=== PATIENT | male | born 1955 | race Caucasian/White ===

== ENCOUNTER 2017-10-06 11:09 | Inpatient (IN) | payer MEDICAID ==
[2017-10-06] MEDS ORDERED: DILTIAZEM 25 MG/5 ML VIAL IVP ONE (11:27)
[2017-10-06] MEDS ORDERED: NS 1,000 ML IV ONE (11:27)
--- NOTE | 2017-10-06 11:27 | CPEKG ---
Heart Rate: 167 RR Interval: 359 QRSD Interval: 82 QT Interval: 288 QTC Interval: 481 QRS [place]: 8 T Wave [place]: 267 EKG Severity - ABNORMAL ECG - EKG Impression: ATRIAL FIBRILLATION WITH RAPID V-RATE EKG Impression: REPOLARIZATION ABNORMALITY, PROB RATE RELATED Electronically Signed By: Trevor Baker 06-Oct-2017 11:31:49
--- NOTE | 2017-10-06 11:31 | EDPHY ---
H & P Stated Complaint: went to urgent care for abd pain . dx with afib Time Seen by Provider: 10/06/17 11:22 HPI/ROS: CHIEF COMPLAINT: Lower abdominal pain, AFib HISTORY OF PRESENT ILLNESS: The patient is a 62-year-old former alcoholic who states he quit drinking about a week ago who comes to the emergency department for lower abdominal pain and atrial fibrillation. He presented this morning to the Urgent Care complaining of suprapubic pain that has been present for about 4 days. He noticed some blood in his urine a few days ago but has not since. While he was being seen at the urgent care and a negative urinalysis but an EKG there revealed atrial fibrillation. The patient denies ever having atrial fibrillation before. He denies chest pain, shortness of breath or palpitations. No lightheadedness. No recent fevers or infections. No vomiting or diarrhea. REVIEW OF SYSTEMS: Constitutional: denies: chills, fever, recent illness, recent injury EENTM: denies: blurred vision, double vision, nose congestion Respiratory: denies: cough, shortness of breath Cardiac: See HPI denies: chest pain, irregular heart rate, lightheadedness, palpitations Gastrointestinal/Abdominal: See HPI Genitourinary: denies: dysuria, frequency, hematuria, pain Musculoskeletal: denies: joint pain, muscle pain Skin: denies: lesions, rash, jaundice, bruising Neurological: denies: headache, numbness, paresthesia, tingling, dizziness, weakness Hematologic/Lymphatic: denies: blood clots, easy bleeding, easy bruising Immunologic/allergic: denies: HIV/AIDS, transplant EXAM: GENERAL: Well-appearing, well-nourished and in no acute distress. HEAD: Atraumatic, normocephalic. EYES: Pupils equal round and reactive to light, extraocular movements intact, sclera anicteric, conjunctiva are normal. ENT: TMs normal, nares patent, oropharynx clear without exudates. Moist mucous membranes. NECK: Normal range of motion, supple without lymphadenopathy or JVD. LUNGS: Breath sounds clear to auscultation bilaterally and equal. No wheezes rales or rhonchi. HEART: Tachycardic, irregular rhythm without murmurs, rubs or gallops. ABDOMEN: Slightly distended, Soft, nontender, normoactive bowel sounds. No guarding, no rebound. No masses appreciated. BACK: No CVA tenderness, no spinal tenderness, step-offs or deformities EXTREMITIES: Normal range of motion, no pitting or edema. No clubbing or cyanosis. NEUROLOGICAL: Cranial nerves II through XII grossly intact. Normal speech, normal gait. 5/5 strength, normal movement in all extremities, normal sensation PSYCH: Normal mood, normal affect. SKIN: Warm, dry, normal turgor, no visible rashes or lesions. Source: Patient Exam Limitations: No limitations - Personal History Current Tetanus/Diphtheria Vaccine: Unsure Current Tetanus Diphtheria and Acellular Pertussis (TDAP): Unsure - Medical/Surgical History Hx Asthma: No Hx Chronic Respiratory Disease: No Hx Diabetes: No Hx Cardiac Disease: Yes Hx Renal Disease: No Hx Cirrhosis: No Hx Alcoholism: No Hx HIV/AIDS: No Hx Splenectomy or Spleen Trauma: No Other PMH: HTN (currently not treated with medications), gout, alcoholism - Family History Significant Family History: No pertinent family hx - Social History Smoking Status: Never smoked Alcohol Use: Heavy Drug Use: None Constitutional: Initial Vital Signs Temperature (C) 36.9 C 10/06/17 11:11 Heart Rate 126 H 10/06/17 11:11 Respiratory Rate 18 10/06/17 11:11 Blood Pressure 126/83 H 10/06/17 11:11 O2 Sat (%) 96 10/06/17 11:11 O2 Delivery Mode Room Air Allergies/Adverse Reactions: No Known Allergies Allergy (Verified 10/06/17 11:15) Home Medications: Medication Instructions Recorded Allopurinol [Allopurinol 100 MG 100 mg PO DAILY PRN 10/06/17 (*)] Herbals/Supplements -Info Only 1 ea PO DAILY 10/06/17 Medical Decision Making - Diagnostics EKG Interpretation: An EKG obtained and was read and documented in trace view. Please see trace view for full reading and report. Atrial fibrillation, rate of 167 Imaging Results: Imaging Impressions Abdomen/Pelvis CTA 10/06/17 11:28 Impression: 1. There is a tiny right intrarenal abdominal aortic ulcerative plaque. There is no aneurysm, dissection, or significant stenosis of the abdominal aortoiliac vascular tree. There is no CT evidence of enterocolitis. 2. Coarsening of the hepatic attenuation, with no discrete mass observed on this arterial phase only study, with some undulation of the hepatic contour suggestive of cirrhosis. There are also some small distal paraesophageal venous varices suspected. 3. Mild splenomegaly. 4. Moderate-volume ascites. Findings were discussed with SHAQ DURANT MD at 13:01, on 10/06/2017. Abdomen Ultrasound 10/06/17 12:51 Impression: 1. Nonvisualization of the pancreas, abdominal aorta, and IVC secondary to overlying bowel gas. 2. Limited assessment of the main portal vein. Complete patency cannot be confirmed. 3. Hepatomegaly with coarsened hepatic echotexture, consistent with hepatocellular disease and/or steatosis. 4. Gallbladder distention with trace pericholecystic fluid and gallbladder sludge. There is no cholelithiasis. 5. There is some perihepatic ascites. Imaging: Discussed imaging studies w/ call or contact centre manager Radiologist ED Course/Re-evaluation: 1:20 a.m. I discussed the case with Dr. Jero Myrick who will admit to the medical service. The patient is receiving heparin and diltiazem drip. Will admit to the PCU. I also ordered a gallbladder/liver ultrasound based on his elevated enzymes. He has not had this worked up before but is likely from his alcoholism. Differential Diagnosis: Partial list of the Differential diagnosis considered include but were not limited to; ischemic bowel, arrhythmia, cirrhosis, biliary disease and although unlikely based on the history and physical exam, I also considered appendicitis, urinary tract infection. - Data Points Laboratory Results: Laboratory Results 10/06/17 11:30 10/06/17 11:30 10/06/17 10/06/17 10/06/17 11:30 11:30 11:30 WBC 12.10 10^3/uL H 10^3/uL (3.80-9.50) RBC 4.49 10^6/uL 10^6/uL (4.40-6.38) Hgb 15.8 g/dL g/dL (13.7-17.5) Hct 43.9 % % (40.0-51.0) MCV 97.8 fL fL (81.5-99.8) MCH 35.2 pg H pg (27.9-34.1) MCHC 36.0 g/dL g/dL (32.4-36.7) RDW 13.3 % % (11.5-15.2) Plt Count 152 10^3/uL 10^3/uL (150-400) MPV 10.7 fL fL (8.7-11.7) Neut % (Auto) 73.8 % % (39.3-74.2) Lymph % (Auto) 14.5 % L % (15.0-45.0) [place] % (Auto) 9.3 % % (4.5-13.0) Eos % (Auto) 1.1 % % (0.6-7.6) Baso % (Auto) 0.9 % % (0.3-1.7) Nucleat RBC Rel Count 0.0 % % (0.0-0.2) Absolute Neuts (auto) 8.93 10^3/uL H 10^3/uL (1.70-6.50) Absolute Lymphs (auto) 1.75 10^3/uL 10^3/uL (1.00-3.00) Absolute Monos (auto) 1.13 10^3/uL H 10^3/uL (0.30-0.80) Absolute Eos (auto) 0.13 10^3/uL 10^3/uL (0.03-0.40) Absolute Basos (auto) 0.11 10^3/uL H 10^3/uL (0.02-0.10) Absolute Nucleated RBC 0.00 10^3/uL 10^3/uL (0-0.01) Immature Gran % 0.4 % % (0.0-1.1) Immature Gran # 0.05 10^3/uL 10^3/uL (0.00-0.10) PT 17.7 SEC H SEC (12.0-15.0) INR 1.46 H (0.83-1.16) APTT 34.9 SEC SEC (23.0-38.0) Sodium 135 mEq/L mEq/L (134-144) Potassium 3.8 mEq/L mEq/L (3.5-5.2) Chloride 99 mEq/L mEq/L (97-110) Carbon Dioxide 22 mEq/l mEq/l (22-31) Anion Gap 14 mEq/L mEq/L (8-16) BUN 9 mg/dL mg/dL (7-23) Creatinine 0.6 mg/dL L mg/dL (0.7-1.3) Estimated GFR > 60 Glucose 108 mg/dL H mg/dL (70-100) Calcium 8.7 mg/dL mg/dL (8.5-10.4) Total Bilirubin 5.0 mg/dL H mg/dL (0.1-1.4) Conjugated Bilirubin 1.9 mg/dL H mg/dL (0.0-0.5) Unconjugated Bilirubin 3.1 mg/dL H mg/dL (0.0-1.1) AST 102 IU/L H IU/L (17-59) ALT 46 IU/L IU/L (21-72) Alkaline Phosphatase 175 IU/L H IU/L (38-126) Troponin I < 0.012 ng/mL ng/mL (0.000-0.034) Total Protein 7.0 g/dL g/dL (6.3-8.2) Albumin 3.7 g/dL g/dL (3.5-5.0) Lipase 223 IU/L IU/L (23-300) Medications Given: Discontinued Medications Diltiazem HCl (Cardizem 25 Mg/5 Ml Vial) 10 mg IVP EDNOW ONE Stop: 10/06/17 11:28 Last Admin: 10/06/17 11:52 Dose: 10 mg Heparin Sodium (Porcine) (Heparin Injection) 0 unit IVP EDNOW ONE PRN Reason: Protocol Stop: 10/06/17 12:52 Last Admin: 10/06/17 13:21 Dose: 4,500 units Sodium Chloride (Ns) 1,000 mls @ 0 mls/hr IV EDNOW ONE; Wide Open PRN Reason: Protocol Stop: 10/06/17 11:28 Last Admin: 10/06/17 11:52 Dose: 1,000 mls Heparin Sodium (Porcine) (Heparin 50 Units/Ml (Premix)) 500 mls @ 0 mls/hr IV EDNOW ONE; Per Protocol PRN Reason: Protocol Stop: 10/06/17 12:52 Last Admin: 10/06/17 13:21 Dose: 500 mls Diltiazem/Dextrose (Diltiazem 125mg/125ml (Premix)) 125 mls @ 0 mls/hr IV ONCE ONE; Titrate PRN Reason: Protocol Stop: 10/06/17 13:31 Last Admin: 10/06/17 13:15 Dose: 125 mls Departure - Departure Disposition: [facility] Clinical Impression: Atrial fibrillation Qualifiers: Atrial fibrillation type: unspecified Qualified Code(s): I48.91 - Unspecified atrial fibrillation Abdominal pain Qualifiers: Abdominal location: generalized Qualified Code(s): R10.84 - Generalized abdominal pain Condition: Fair
[2017-10-06 11:39] LABS: % IMMATURE GRANULYOCYTES 0.4 % (0.0-1.1); ABSOLUTE IMMATURE GRANULOCYTES 0.05 10^3/uL (0.00-0.10); ADD DIFF? NO; ADD MORPH? NO; ADD SCAN? NO; ATYPICAL LYMPHOCYTE FLAG 10 (0-99); FRAGMENT RBC FLAG 0 (0-99); HEMATOCRIT 43.9 % (40.0-51.0); HEMOGLOBIN 15.8 g/dL (13.7-17.5); LEFT SHIFT FLG 0 (0-99); LIPEMIA HEMOLYSIS FLAG 90 (0-99); MEAN CELL HEMOGLOBIN 35.2 pg (27.9-34.1); MEAN CELL VOLUME 97.8 fL (81.5-99.8); MEAN PLATELET VOLUME 10.7 fL (8.7-11.7); PLATELET CLUMPS FLAG 10 (0-99); PLATELET COUNT 152 10^3/uL (150-400); RED BLOOD CELL COUNT 4.49 10^6/uL (4.40-6.38); RED CELL DISTRIBUTION WIDTH 13.3 % (11.5-15.2)
[2017-10-06 11:52] LABS: ALANINE AMINOTRANSFERASE 46 IU/L (21-72); ALBUMIN 3.7 g/dL (3.5-5.0); ALKALINE PHOSPHATASE 175 IU/L (38-126); ANION GAP 14 mEq/L (8-16); ASPARTATE AMINOTRANSFERASE 102 IU/L (17-59); BILIRUBIN-CONJUGATED 1.9 mg/dL (0.0-0.5); BILIRUBIN-UNCONJUGATED 3.1 mg/dL (0.0-1.1); CALCIUM 8.7 mg/dL (8.5-10.4); CARBON DIOXIDE 22 mEq/l (22-31); CHLORIDE 99 mEq/L (97-110); CREATININE 0.6 mg/dL (0.7-1.3); GLOMERULAR FILTRATION RATE > 60; GLUCOSE 108 mg/dL (70-100); POTASSIUM 3.8 mEq/L (3.5-5.2); SODIUM 135 mEq/L (134-144)
[2017-10-06 12:04] LABS: TROPONIN I < 0.012 ng/mL (0.000-0.034)
[2017-10-06] MEDS ORDERED: IOPAMIDOL (ISOVUE 370) 100 ML BTL IV ONE (12:22)
[2017-10-06 12:42] LABS: INR 1.46 (0.83-1.16); PROTIME(PATIENT) 17.7 SEC (12.0-15.0)
[2017-10-06 12:43] LABS: APTT 34.9 SEC (23.0-38.0)
[2017-10-06] MEDS ORDERED: HEPARIN 10,000 UNIT/10 ML MDV IVP ONE ×2 (12:51→16:28)
[2017-10-06] MEDS ORDERED: HEPARIN/DEXTROSE 500 ML IV ONE (12:51)
[2017-10-06] MEDS ORDERED: DILTIAZEM 125 MG in D5W 125 ML IV ONE (13:04)
[2017-10-06] MEDS ORDERED: DILTIAZEM HCL/D5W 125 ML IV ONE (13:30)
[2017-10-06] MEDS ORDERED: ONDANSETRON 4 MG/2 ML VIAL IVP PRN (15:48)
[2017-10-06] MEDS ORDERED: ALLOPURINOL 100 MG TAB PO PRN (15:48)
[2017-10-06] MEDS ORDERED: ONDANSETRON DISINTEGRATING 4 MG TAB PO PRN (15:48)
[2017-10-06] MEDS ORDERED: DILTIAZEM 125 MG in D5W 125 ML IV SCH (16:30)
[2017-10-06] MEDS ORDERED: HEPARIN/DEXTROSE 500 ML IV SCH (16:30)
--- NOTE | 2017-10-06 17:09 | GHP ---
[f rep st] HISTORY AND PHYSICAL DATE OF ADMISSION: 10/06/2017 HISTORY OF PRESENT ILLNESS: The patient is a 62-year-old gentleman with a history of heavy alcohol u se, however, quit drinking about 6 days ago. He has had minimal withdrawal symptoms. He presented t [facility] with lower abdominal pain. He quit drinking because he was having some bloating. He presented to urgent care where he was found to be in rapid atrial fibrillation, referred to the em ergency department. He denies palpitations, chest pain, shortness of breath. He does notice a littl e bit of lower extremity edema and increasing abdominal girth. He has not noticed jaundice. He has not had hallucinations or formicosis. REVIEW OF SYSTEMS: Complete 10-point review of systems conducted, negative except as noted in the HP I. PAST MEDICAL HISTORY: Gout for which he takes allopurinol. ALLERGIES: Unknown. SOCIAL HISTORY: He just quit drinking. It sounds like he had heavy use in the past. He works in [employer] and originally from [facility]. He is . FAMILY HISTORY: Reviewed, unremarkable. PHYSICAL EXAMINATION: VITAL SIGNS: Temp 36.9, blood pressure 126/83, pulse 126, breathing 18 times a minute, and 96% on room air. GENERAL: No acute distress. Tremulous. HEENT: Sclerae are anicteri c. Oropharynx clear. Mucous membranes are moist. NECK: Supple, without lymphadenopathy or JVD. L UNGS: Clear to auscultation bilaterally. HEART: S1, S2. Tachycardic, irregularly-irregular. No m urmur. ABDOMEN: Soft. It is distended. There is a fluid wave. EXTREMITIES: There is trace lower extremity edema bilaterally. Calves nontender. SKIN: Without rash. NEUROLOGIC: Nonfocal. LABS: White count 12.1, hematocrit 44, platelets are 152,000. INR is 1.46. Sodium 135, potassium 3 .8, chloride 99, bicarb 22, BUN 9, creatinine 0.6, glucose 108, bilirubin is 5, with an unconjugated predominance. AST is 102, ALT 46, alkaline phosphatase elevated at 175. Troponin is less than 0.012 . Lipase 223. EKG interpreted by mn shows atrial fibrillation with a rapid ventricular rate of 160, with normal axi s and intervals, with some ST depressions laterally. Abdominal CTA shows hepatic steatosis, a tiny i nfrarenal aortic ulcerative plaque, mild splenomegaly. Abdominal shows limited assessment of the main portal vein, cannot assess complete patency . Hepatomegaly with and perihepatic ascites. I discussed the case with Dr. Trevor Baker . ASSESSMENT/PLAN: This is a 62-year-old gentleman who presents with abdominal pain, ascites, liver in jury, possible early cirrhosis and new atrial fibrillation. 1. Atrial fibrillation. Patient is currently on a diltiazem drip. Will continue this. He is on a heparin drip. Cardiology will see him for possible direct current cardioversion. He is a moderate c andidate for chronic anticoagulation, but probably would do okay with 1 month. His CHADS Vasc score is 1 for hypertension, although, he takes no meds. 2. Liver injury. The patient has alcoholic hepatitis and low discriminant function. He also has as cites which is more suggestive of chronic process. The patient understands the need for abstinence f rom alcohol. I will start him on spironolactone and Lasix. 3. Question portal vein thrombosis. I will perform a Doppler ultrasound to evaluate hepatic vein. 4. Alcoholism. Patient has tremors, but otherwise I do not believe is in alcohol withdrawal. He is alert and mentating. His tachycardia is secondary to atrial fibrillation. I think we can go ahead and not treat him for alcohol withdrawal. 5. Prophylaxis, currently anticoagulated. /[id number]/MODL
[2017-10-06 18:13] LABS: COLOR YELLOW; LEUKOCYTE ESTERASE,URINE NEGATIVE (NEGATIVE); NITRITE,URINE NEGATIVE (NEGATIVE)
[2017-10-06 18:17] LABS: INR 1.69 (0.83-1.16); PROTIME(PATIENT) 19.9 SEC (12.0-15.0)
[2017-10-06 18:31] LABS: APTT 102.4 SEC (23.0-38.0)
--- NOTE | 2017-10-06 18:34 | HOSPPROG ---
Hospitalist Progress Note Assessment/Plan: #Possible portal vein thrombosis: -discussed with Dr. Harper. Imaging was done with doppler, but in arterial phase. Difficult study, so U/S with doppler not helpful. -can order portal venous helical CT. Can order tomorrow since already received IV contrast today. On heparin gtt Objective: Vital Signs Temp Pulse Resp BP Pulse Ox 36.9 C 130 H 16 125/100 H 96 10/06/17 11:11 10/06/17 14:10 10/06/17 14:10 10/06/17 14:10 10/06/17 14:10 10/05/17 10/06/17 10/07/17 05:59 05:59 05:59 Intake Total 167 Balance 167 PT 19.9 SEC (12.0-15.0) H 10/06/17 17:50 INR 1.69 (0.83-1.16) H 10/06/17 17:50 ICD10 Worksheet Patient Problems: Problems Problem Status Onset Abdominal pain Acute Atrial fibrillation Acute Primary localized osteoarthritis of right hip Acute
[2017-10-06] MEDS: HEPARIN 10,000 UNIT/10 ML MDV IVP PRN (21:21)
[2017-10-07 02:37] LABS: % IMMATURE GRANULYOCYTES 0.4 % (0.0-1.1); ABSOLUTE IMMATURE GRANULOCYTES 0.04 10^3/uL (0.00-0.10); ADD DIFF? NO; ADD MORPH? NO; ADD SCAN? NO; ATYPICAL LYMPHOCYTE FLAG 10 (0-99); FRAGMENT RBC FLAG 0 (0-99); HEMATOCRIT 35.5 % (40.0-51.0); HEMOGLOBIN 12.8 g/dL (13.7-17.5); LEFT SHIFT FLG 0 (0-99); LIPEMIA HEMOLYSIS FLAG 90 (0-99); MEAN CELL HEMOGLOBIN 35.6 pg (27.9-34.1); MEAN CELL HEMOGLOBIN CONCENTR. 36.1 g/dL (32.4-36.7); MEAN CELL VOLUME 98.6 fL (81.5-99.8); MEAN PLATELET VOLUME 11.1 fL (8.7-11.7); PLATELET CLUMPS FLAG 0 (0-99); PLATELET COUNT 120 10^3/uL (150-400); RED CELL DISTRIBUTION WIDTH 13.4 % (11.5-15.2)
[2017-10-07 02:45] LABS: INR 1.72 (0.83-1.16); PROTIME(PATIENT) 20.2 SEC (12.0-15.0)
[2017-10-07 02:52] LABS: ALANINE AMINOTRANSFERASE 40 IU/L (21-72); ALBUMIN 2.7 g/dL (3.5-5.0); ALKALINE PHOSPHATASE 125 IU/L (38-126); ANION GAP 11 mEq/L (8-16); ASPARTATE AMINOTRANSFERASE 74 IU/L (17-59); BILIRUBIN,TOTAL 3.2 mg/dL (0.1-1.4); CALCIUM 7.7 mg/dL (8.5-10.4); CARBON DIOXIDE 22 mEq/l (22-31); CHLORIDE 101 mEq/L (97-110); CREATININE 0.5 mg/dL (0.7-1.3); GLOMERULAR FILTRATION RATE > 60; GLUCOSE 108 mg/dL (70-100); POTASSIUM 3.3 mEq/L (3.5-5.2); SODIUM 134 mEq/L (134-144); TOTAL PROTEIN 5.3 g/dL (6.3-8.2)
[2017-10-07 03:09] LABS: BILIRUBIN-CONJUGATED 1.3 mg/dL (0.0-0.5); BILIRUBIN-UNCONJUGATED 1.9 mg/dL (0.0-1.1)
[2017-10-07] MEDS: HEPARIN 10,000 UNIT/10 ML MDV IVP PRN (03:30)
[2017-10-07] MEDS: FUROSEMIDE 40 MG TAB PO SCH (08:33)
[2017-10-07] MEDS: SPIRONOLACTONE 25 MG TAB PO SCH (08:33)
--- NOTE | 2017-10-07 08:39 | CPEKG ---
Heart Rate: 82 RR Interval: 732 P-R Interval: 176 QRSD Interval: 86 QT Interval: 432 QTC Interval: 505 P [place]: 53 QRS [place]: 24 T Wave [place]: 19 EKG Severity - ABNORMAL ECG - EKG Impression: SINUS RHYTHM EKG Impression: PROLONGED QT INTERVAL Electronically Signed By: Dominic Spencer 07-Oct-2017 09:36:57
[2017-10-07] MEDS: METOPROLOL TARTRATE 25 MG TAB PO SCH ×2 (09:43→20:00)
[2017-10-07] MEDS ORDERED: IOPAMIDOL (ISOVUE-300) 100 ML BTL ONE (09:46)
--- NOTE | 2017-10-07 09:48 | HOSPPROG ---
Hospitalist Progress Note Assessment/Plan: 62 yo M admitted w new AF, alcoholic hepatitis, ascites and concern for portal vein thrombosis AF: no in sinus uncertain duration, suspect alcohol related echo pending seen by cardiology BB started CHADS Vasc 1 AC as below ?portal vein thrombosis: this would account for ascites without cirrhosis on heparin gtt will transition to LMWH and warfarin will verify today w portal phase CT w contrast alcoholic hepatitis: no alcohol in 7 days motivated to quit not in withdrawal gout: allopurinol proph: anticoagulated dispo: inpatient Subjective: in sinus (ekg interp by me). case d/w dr bowens Objective: Vital Signs Temp Pulse Resp BP Pulse Ox 36.8 C 79 18 124/74 H 90 L 10/07/17 07:50 10/07/17 07:50 10/07/17 07:50 10/07/17 07:50 10/07/17 07:50 Laboratory Results 10/07/17 02:05 10/07/17 02:05 10/06/17 10/07/17 10/08/17 05:59 05:59 05:59 Intake Total 567 Balance 567 PT 20.2 SEC (12.0-15.0) H 10/07/17 02:05 INR 1.72 (0.83-1.16) H 10/07/17 02:05 - Physical Exam Constitutional: no apparent distress, appears nourished Eyes: PERRL, anicteric sclera Ears, Nose, Mouth, Throat: moist mucous membranes, hearing normal Cardiovascular: regular rate and rhythym, edema, No systolic murmur Respiratory: no respiratory distress, no rales or rhonchi Gastrointestinal: normoactive bowel sounds, soft, non-tender abdomen, ascites Genitourinary: No christie in urethra Skin: warm, normal color Neurologic: AAOx3, sensation intact bilaterally Psychiatric: interacting appropriately, not anxious Lymph, Heme, Immunologic: no cervical LAD ICD10 Worksheet Patient Problems: Problems Problem Status Onset Abdominal pain Acute Atrial fibrillation Acute Primary localized osteoarthritis of right hip Acute
--- NOTE | 2017-10-07 10:13 | PDMN ---
Medical Necessity Medical necessity: C/M review: est. > 2 MN LOS for eval and TX of new atrial fibrillation, concern for portal vein thrombosis, alcoholic hepatitis, ascites , requiring planned echocardiogram, 10/07/2017 CT portal phase abdomen, ongoing cardiac monitoring, comorbid gout per 10/07/2017 Hospitalist progress note.
[2017-10-07] MEDS: ENOXAPARIN 80 MG/0.8 ML SYR SC SCH ×2 (10:28→20:05)
[2017-10-07 11:02] LABS: CHOLESTEROL 101 mg/dL (140-220); CHOLESTEROL/HDL RATIO 8.42 RATIO (1.00-4.97); HIGH DENSITY LIPOPROTEIN 12 mg/dL (40-65); LDL/HDL RATIO 5.67 RATIO (1.00-3.64); LOW DENSITY LIPOPROTEIN 68 mg/dL (80-100); NON-HIGH DENSITY LIPOPROTEIN 89 mg/dL (90-129); TRIGLYCERIDE 108 mg/dL (40-150); VERY LOW DENSITY LIPOPROTEINS 21 mg/dL (8-25)
--- NOTE | 2017-10-07 12:18 | ECHO ---
[email or web address] [address] Main: [phone] Fax: [email or web address] Echocardiogram Name: JENIFFER TERRAZAS MR#: [id number] Study Date: 10/07/2017 Study Time: 09:23 AM Date of : 1955 Age: 62 year(s) Height: 175.3 cm (69 in.) Weight: 75.3 kg (166 lb.) BSA: 1.91 m2 Gender: Male Examination: Echo Indication: Atrial Fibrillation Image Quality: Contrast: Requested by: Clifford Salgado BP: / Heart Rate: Rhythm: Indication: Atrial Fibrillation Procedure Staff Manager Hotel: [facility] Reading Physician: Ladan Robins Requesting Provider: Conclusions: Normal size left ventricle. Normal global systolic LV function. EF is 64 %. No regional wall motion abnormality. Normal size right ventricle. Normal RV function. The left atrium is normal in size. The right atrium is normal in size. Trivial to mild mitral regurgitation. Pulmonary artery pressure is not obtained due to inadequate TR jet. Measurements: Chambers Valvular Assessment AV/MV Valvular Assessment TV/PV Normal Normal Normal Name Value Range Name Value Range Name Value Range IVSd (2D): 1.0 cm (0.6 cm-1.1 AV meanP mmHg ( - ) cm) LVOT Vmax: 1.08 m/s (0.7 m/s-1.1 LVDd (2D): 3.9 cm (4.2 cm-5.9 m/s) cm) MV E Vmax: 0.64 m/s ( - ) LVDs (2D): 2.6 cm (2.1 cm-4 MV A Vmax: 0.51 m/s ( - ) cm) MV E/A: 1.25 ( - ) LVPWd (2D): 1.0 cm (0.6 cm-1 cm) LVEF (BP): 64 % (>=55 %) Continued Measurements: Chambers Valvular Assessment AV/MV Name Value Name Value Patient: JENIFFER TERRAZAS Study Date: 10/07/2017 Page 1 of 2 09:23 AM LADs Lon.6 cm MV DecTime: 243 m/s LA Area: 18.5 cm2 MV E/E' Septal: 8.30 LA Volume: 44 ml MV E/E' Lateral: 4.80 LA Volume Index: 23.0 ml/m2 TAPSE: 2.6 cm Findings: Left Ventricle: Normal size left ventricle. Normal global systolic LV function. EF is 64 %. No regional wall motion abnormality. Right Ventricle: Normal size right ventricle. Normal RV function. Left Atrium: The left atrium is normal in size. Right Atrium: The right atrium is normal in size. Mitral Valve: The mitral valve is normal in appearance and function. Trivial to mild mitral regurgitation. Aortic Valve: The aortic valve is tri-leaflet and functions normally. Mild aortic cusp calcification is noted. There is no aortic valve regurgitation. No aortic valve stenosis is present. Tricuspid Valve: The tricuspid valve is normal in appearance and function. Trivial tricuspid valve regurgitation. Pulmonary artery pressure is not obtained due to inadequate TR jet. Pulmonic Valve: Pulmonary valve not well visualized. Pericardium: No pericardial effusion. There is pericardial fat. (No Signature Object) Patient: JENIFFER TERRAZAS Study Date: 10/07/2017 Page 2 of 2 09:23 AM [id number]
--- NOTE | 2017-10-07 12:52 | GCON ---
[f rep st] CONSULTATION CARDIOLOGY CONSULT. DATE OF CONSULTATION: 10/07/2017 CHIEF COMPLAINT: Atrial fibrillation. HISTORY OF PRESENT ILLNESS: We were asked by Dr. Salgado to visit with the patient. The patient is a 62-year-old male with history of borderline hypertension and borderline dyslipidemia. He has a hist ory of heavy alcohol use. He has no prior known history of coronary disease or arrhythmia. He quit drinking about 7 days ago. He did this because he noticed his abdomen was becoming distended . Yesterday, he presented to Urgent Care with suprapubic pain and seeing blood in his urine. At [facility], he was found to be in atrial fibrillation with rapid ventricular response and was, therefor e, transferred for admission and further evaluation and management. He was started on IV heparin and diltiazem drip. He converted to sinus rhythm overnight. Upon my ev aluation this morning, he reports feeling essentially back to baseline. He was noticing some tachyca rdia, but really had not had a clear idea that he was in atrial fibrillation. He denied angina, dysp zev, presyncope, or syncope. No lower extremity edema, paroxysmal nocturnal dyspnea, or orthopnea. He states that his suprapubic pain has resolved. REVIEW OF SYSTEMS: A full 10-point Review of Systems was performed. In addition to what is outlined in the History of Present Illness, he does report an intermittent breakout of acne, in different par ts of his body, since getting his hip replacement a year ago. He has no history of bleeding diathese s. No history of stroke or TIA. No diarrhea. No melena or hematemesis or hematochezia. ALLERGIES: No known drug allergies. PAST MEDICAL HISTORY: 1. Borderline hypertension. 2. Dyslipidemia. 3. Gout, for which he takes daily allopurinol. He has not had an episode in 9 years. 4. New diagnosis of atrial fibrillation. 5. Heavy alcohol use. 6. Possible early cirrhosis with ascites. 7. History of hip replacement. OUTPATIENT MEDICATIONS: Allopurinol 100 mg daily, and herbal supplements. SOCIAL HISTORY: The patient works for himself in sales. He is . He reports drinking 3 to 4 glasses of wine daily for several years. He quit 1 week ago. He does not smoke cigarettes, use kristine hilary, or use cocaine. FAMILY HISTORY: Negative for premature coronary disease or sudden cardiac . PHYSICAL EXAM: VITAL SIGNS: Blood pressure 124/74. Current heart rate is 79. Upon admission, his heart rate was 148. Oxygen saturation 90% on room air. Respiratory rate is 18. He is afebrile. GE NERAL: He is a well-developed, well-nourished older male. He is slightly tremulous. CARDIOVASCULAR : JVP is less than 10. Carotids equal and 2+ without bruit. Regular rate and rhythm without murmur , rub, or gallop. LUNGS: Clear to auscultation bilaterally without wheezes, rhonchi, or rales. ABD OMEN: Distended and nontender. Positive fluid wave. No obvious masses. I cannot palpate his liver or spleen. EXTREMITIES: Warm and well perfused without cyanosis, clubbing, or edema. NEURO: Aler t and oriented x3 without gross focal neurologic deficits. Appropriate mood and affect. He is sligh tly tremulous. LABORATORY DATA: White count 10.39, hematocrit 35.5, and platelets are 120. INR is 1.72. Sodium 13 4, potassium 3.3, chloride 101, BUN 10, creatinine 0.5, glucose 108. Total bilirubin is 3.2, conjuga scott bilirubin is 1.3, and unconjugated bilirubin is 1.9, AST is 74, ALT is 40, alk phos is 125. Trop onin negative x1. Total protein 5.3. Albumin 2.7. Urinalysis shows elevated urobilinogen. EKG x2 reviewed by me. Initial EKG shows atrial fibrillation with rapid ventricular response. Subse quent EKG this morning: Sinus rhythm with prolonged QT interval. No ischemic changes. Abdomen and pelvis CT: A tiny right infrarenal abdominal aortic ulcerative plaque. No abdominal aor tic aneurysm. Possible hepatic cirrhosis. Small distal paraesophageal varices. Mild splenomegaly. Moderate ascites. Abdominal ultrasound: Patency of the portal vein cannot be confirmed. Hepatomeg rashad. Gallbladder distention. Ascites. ASSESSMENT AND PLAN: 62-year-old male with new diagnosis of atrial fibrillation in the setting of bull khanhg recently quit alcohol. He does not appear to have cardiac ischemia or heart failure. He also h as evidence of likely early cirrhosis with ascites, and possible portal vein thrombosis that will be further evaluated today. 1. Atrial fibrillation: He has converted to normal sinus rhythm. We will stop diltiazem drip and s tart low-dose metoprolol. This should help with his arrhythmia, hypertension, and possibly with prot ecting against variceal expansion. His CHADS2-VASc score is 1, therefore, we could either choose asp irin or warfarin as an anticoagulation strategy regarding his atrial fibrillation. At this point, aw ait further assessment of whether he has portal vein thrombosis. If he does not, would prefer aspiri n, given his slightly higher bleeding risk in the setting of his liver disease. Echocardiogram is pe nding. I have also ordered a TSH. 2. Liver disease: This is alcoholic in etiology. Further evaluation per Internal Medicine. He lizz l likely need outpatient gastroenterology followup. 3. Alcohol abuse: He has been abstinent for 7 days. He is slightly tremulous, but does not appear to be withdrawing, although I do think that his atrial fibrillation is likely part of a withdrawal ph enomenon. Followed by Internal Medicine. He was strongly encouraged to remain completely abstinent from alcohol. 4. Hypertension: Start low-dose beta celena. He has also been started on Lasix and spironolactone for his ascites. 5. Dyslipidemia: His LDL was elevated on his lipid profile a year ago. Repeat this. Discuss at the [facility]. Thank you for allowing us to participate in the patient's care. Will follow with you. /[id number]/MODL
[2017-10-07] MEDS: HYDROCORTISONE 1% CREAM TP SCH ×2 (13:55→20:04)
--- NOTE | 2017-10-07 14:51 | ASMTCMCOM ---
CM Note CM Note Notes: 10/07/2017 Case Management Note Met w/pt and Ladan [phone] No case management d/c needs identified d/t pt age, marital status and activity levels prior to admission. Case Management d/c poc: Home independent when medically stable with follow up as directed. Provided alcohol cessation resources. Ladan has achieved sobriety for a number of years. Encouraged Ladan to allow space for pt to walk his own path toward sobriety and encouraged counseling support for them both as pt starts path towards recovery. Pt in agreement and affirmed motivation to continue sobriety. Case management available if there are any further needs. Date Signed: 10/07/2017 02:51 PM Electronically Signed By:Dali Negrete RN
[2017-10-07] MEDS: WARFARIN SODIUM 5 MG TAB PO SCH (18:45)
[2017-10-07] MEDS ORDERED: PROTOCOL POTASSIUM 1 DOSE MISC PRN (19:40)
[2017-10-07 19:59] LABS: POTASSIUM 3.5 mEq/L (3.5-5.2)
[2017-10-07] MEDS ORDERED: HYDROCORTISONE 1% CREAM TP SCH (21:00)
[2017-10-07] MEDS ORDERED: POTASSIUM CL 20 MEQ TAB PO ONE ×2 (21:11→23:45)
[2017-10-08 05:36] LABS: POTASSIUM 3.9 mEq/L (3.5-5.2)
[2017-10-08] MEDS ORDERED: POTASSIUM CL 10 MEQ TAB PO ONE ×3 (08:22→19:28)
[2017-10-08] MEDS: METOPROLOL TARTRATE 25 MG TAB PO SCH ×2 (08:44→21:28)
--- NOTE | 2017-10-08 09:28 | HOSPPROG ---
Hospitalist Progress Note Assessment/Plan: #Main PVT: cont anticoagulation. FU with [facility] outpatient #Etoh abuse: wants to quit. CM provided resources and willing #A fib: converted to NSR. CHADSvasc 1. ASA or coumadin appropriate. On coumadin for PVT #Volume overload: cont diuresis, moderated ascites on CT. Tap today #Diet: low sodium Disp: cont inpatient admission for tap, repeat labs. DC tomorrow if labs stable Subjective: no chest pain. Abd discomfort due to distension Objective: Vital Signs Temp Pulse Resp BP Pulse Ox 36.8 C 81 18 120/75 93 10/08/17 07:42 10/08/17 07:42 10/08/17 07:42 10/08/17 07:42 10/08/17 07:42 Laboratory Results 10/08/17 05:00 10/08/17 05:00 10/07/17 10/08/17 10/09/17 05:59 05:59 05:59 Intake Total 1090 Balance 1090 PT 20.2 SEC (12.0-15.0) H 10/07/17 02:05 INR 1.72 (0.83-1.16) H 10/07/17 02:05 - Physical Exam Constitutional: no apparent distress Eyes: icteric sclera Ears, Nose, Mouth, Throat: moist mucous membranes Cardiovascular: regular rate and rhythym, no murmur, rub, or gallop, edema ( trace peripheral edema BL legs) Respiratory: no respiratory distress Gastrointestinal: normoactive bowel sounds, distension Genitourinary: no bladder fullness Skin: warm Musculoskeletal: full muscle strength Neurologic: AAOx3 ICD10 Worksheet Patient Problems: Problems Problem Status Onset Abdominal pain Acute Atrial fibrillation Acute Primary localized osteoarthritis of right hip Acute
[2017-10-08 09:36] LABS: INR 1.5 (0.83-1.16); PROTIME(PATIENT) 18.1 SEC (12.0-15.0)
--- NOTE | 2017-10-08 11:17 | PDCARPN ---
Cardiology Progress Note Chief Complaint: PAF Assessment/Plan: Assessment: 62M PMH heavy alcohol use, borderline htn, borderline dyslipidemia. Started to note worsening abdominal distention 1 week BUSINESS TRANSFORMATION MANAGER and therefore stopped drinking alcohol. 1 day BUSINESS TRANSFORMATION MANAGER, went to an UC after having suprapubic pain and noting hematuria. Was found to be in AF RVR and was sent to our hospital for further management. #. PAF: now in SR continue Metoprolol started on Warfarin due to PVT #. ascites/liver disease: extensive abdominal ascites pt requests paracentesis which has been ordered #. borderline htn: BP appears controlled after starting Metoprolol and Furosemide #. Main PVT: per IM pt started on Warfarin and will need outpatient GI follow up #. alcohol abuse: has abstained since BUSINESS TRANSFORMATION MANAGER #. dyslipidemia: LDL low at 68 on today's panel will not initiate therapy #. elevated TSH: may have outpatient follow up 10/08/17 11:18 Subjective: Notes discomfort from abdominal distention. No palps or dyspnea. Reviewed/Discussed With: hospitalist (Dr. Costa) Objective: Vital Signs (8 Hrs) Temp Pulse Resp BP Pulse Ox 10/08/17 07:42 98.2 F 81 18 120/75 93 10/08/17 04:00 98.4 F 77 18 123/75 H 92 Intake/Output (24 Hrs) 10/07/17 10/08/17 10/09/17 05:59 05:59 05:59 Intake Total 1090 Balance 1090 Intake: Oral (ml) 1090 Other: Intake Quantity Yes Sufficient Number of Voids Toilet 3 Result Diagrams: 10/08/17 05:00 10/08/17 05:00 Echocardiogram: EF 64, LA/RA normal, trace-mild MR - Physical Exam Constitutional: no apparent distress Eyes: PERRL Cardiovascular: regular rate and rhythm Respiratory: clear to auscultate bilat Gastrointestinal: normoactive bowel sounds, ascites, No guarding Skin: warm, other (rash at lower aspect of abdomen) Neurologic: AAOx3 Psychiatric: cooperative, interactive ICD10 Worksheet Patient Problems: Problems Problem Status Onset Abdominal pain Acute Atrial fibrillation Acute Primary localized osteoarthritis of right hip Acute
[2017-10-08 11:25] LABS: HEMATOCRIT 35.9 % (40.0-51.0); HEMOGLOBIN 13.2 g/dL (13.7-17.5); MEAN CELL HEMOGLOBIN 36.6 pg (27.9-34.1); MEAN CELL HEMOGLOBIN CONCENTR. 36.8 g/dL (32.4-36.7); MEAN CELL VOLUME 99.4 fL (81.5-99.8); RED BLOOD CELL COUNT 3.61 10^6/uL (4.40-6.38); RED CELL DISTRIBUTION WIDTH 13.6 % (11.5-15.2)
[2017-10-08] MEDS: ENOXAPARIN 80 MG/0.8 ML SYR SC SCH ×2 (11:39→21:30)
[2017-10-08] MEDS: HYDROCORTISONE 1% CREAM TP SCH ×2 (11:40→21:30)
[2017-10-08] MEDS: FUROSEMIDE 40 MG TAB PO SCH (11:43)
[2017-10-08] MEDS: SPIRONOLACTONE 25 MG TAB PO SCH (11:43)
[2017-10-08] MEDS ORDERED: FLU VACC QS 2017-18 (3YR+)/PF 0.5 ML SYR (FLUARIX QUAD) IM ONE (12:12)
[2017-10-08] MEDS ORDERED: PNEUMOCOCCAL 0.5ML VACCINE VIAL IM ONE (12:12)
[2017-10-08] MEDS ORDERED: LIDOCAINE 1% 300 MG/30 ML SDV ONE (13:52)
[2017-10-08 17:04] LABS: GLUCOSE, PERITONEAL FLUID 103 mg/dL (55-113)
[2017-10-08] MEDS: WARFARIN SODIUM 5 MG TAB PO SCH (17:07)
[2017-10-08 19:12] LABS: POTASSIUM 3.9 mEq/L (3.5-5.2)
[2017-10-09 05:22] LABS: INR 1.61 (0.83-1.16); PROTIME(PATIENT) 19.2 SEC (12.0-15.0)
[2017-10-09 05:31] LABS: ANION GAP 12 mEq/L (8-16); CARBON DIOXIDE 23 mEq/l (22-31); CHLORIDE 100 mEq/L (97-110); CREATININE 0.6 mg/dL (0.7-1.3); GLOMERULAR FILTRATION RATE > 60; GLUCOSE 111 mg/dL (70-100); SODIUM 135 mEq/L (134-144)
[2017-10-09 07:32] VITALS: RESP 18
[2017-10-09] MEDS: SPIRONOLACTONE 25 MG TAB PO SCH (09:00)
[2017-10-09] MEDS: FUROSEMIDE 40 MG TAB PO SCH (09:00)
[2017-10-09] MEDS: METOPROLOL TARTRATE 25 MG TAB PO SCH (09:00)
[2017-10-09] MEDS: HYDROCORTISONE 1% CREAM TP SCH (09:03)
--- NOTE | 2017-10-09 09:35 | GDS ---
[f rep st] DISCHARGE SUMMARY DISCHARGE DIAGNOSES: 1. Atrial fibrillation with rapid ventricular response. 2. Alcohol dependence. 3. Main portal vein thrombosis. 4. Volume overload. 5. Hepatic steatosis. HISTORY OF PRESENT ILLNESS: A 62-year-old male with significant alcohol use, who quit drinking 6 days prior to admission, presented with lower abdominal pain. He quit drinking because he noted some bloating in his abdomen. He presented to Urgent Care, and he was found to be in rapid atrial fibrillation, and was sent to the ED. He denied palpitations, chest pain, or shortness of breath. He did notice a little lower extremity edema and abdominal girth. HOSPITAL COURSE BY PROBLEM: 1. Atrial fibrillation with rapid ventricular response: converted on diltiazem drip. CHADS-VASc score is 1 for hypertension, although he takes no medications. Aspirin would be reasonable. However, he is already Coumadin for his portal vein thrombosis. Metoprolol 12.5mg BID. 2. Portal vein thrombosis: This was confirmed on CT. He will be treated with Coumadin and Lovenox bridge until INR 2. 3. Hepatic steatosis: Secondary to alcohol. He did have significant ascites here. He underwent therapeutic paracentesis of 3 L with much improved symptoms. We will discharge on Lasix and spironolactone. He is to follow up with [facility]. 4. Alcohol abuse: The patient does want to quit. His is very supportive of assisting him with cessation. community service manager provided resources. DISPOSITION: The patient for safe for discharge home. MEDICATIONS: 1. Lasix 40 mg daily. 2. Spironolactone 25 mg daily. 3. Metoprolol 12.5 mg daily. 4. Coumadin 5 mg daily. 5. Lovenox 70 mg twice daily. FOLLOWUP: 1. [facility]. 2. Establish care with a PCP. 3. Anticoagulation Clinic. PHYSICAL EXAM: VITAL SIGNS: Today, temperature 36.9, blood pressure 115/78, heart rate 70s, respirations 18, 93% on room air. GENERAL: Well appearing, sitting up in bed, in no acute distress. HEENT: PERRLA. EOMI. Oropharynx clear. CV: Regular rate and rhythm. No murmurs, gallops, rubs. LUNGS: Clear to auscultation bilaterally. ABDOMEN: Soft, less distended. No mass. MUSCULOSKELETAL: 5/5 upper lower extremity strength. NEURO: 2 through 12 intact. PSYCH: Alert and oriented x3. Time spent on DC: 75 min coordinating FU with PCP, AC clinic and counseling patient on medications /[id number]/MODL MTDD
[2017-10-09 11:18] VITALS: BP 109/72; PULSE 72; TEMP 98.2; O2SAT 95
[2017-10-09] MEDS: ENOXAPARIN 80 MG/0.8 ML SYR SC SCH (12:30)
--- NOTE | 2017-10-09 12:52 | ASMTCMCOM ---
CM Note CM Note Notes: 10/09/2017 Case Management Note Pt has appointment set with Dr. Maria C Meyer at the [facility] for at 1545. Notified Pharmacist and MD of appointment to coordinate INR and Platelet blood draws. to transport home. Date Signed: 10/09/2017 12:51 PM Electronically Signed By:Dali Negrete RN
--- NOTE | 2017-10-09 15:44 | ASDISCHSUM ---
Discharge Information Plan Status:Home with No Needs Medically Cleared to Leave:10/08/2017 Discharge Date:10/09/2017 01:44 PM CM D/C Disposition:Home, Routine, Self-Care ADT D/C Disposition:Home, Routine, Self-Care Projected Discharge Date:10/09/2017 01:44 PM Transportation at D/C:Family Discharge Delay Reason: Follow-Up Date:10/09/2017 01:44 PM Discharge Slot: Final Diagnosis: Placement Information Patient Contact Information Contact Name:JAZLYN Relationship: Address:[address] [place] [address] City:[place] Alternate Phone: [facility]/Zip Code:[place] [address] Email: Financial Information Financial Class: Primary Plan Desc:[employer] [place] Primary Plan Number:[id number] Secondary Plan Desc: Secondary Plan Number: Assessment Information [facility] CM Progress Note CM Note CM Note Notes: 10/07/2017 Case Management Note Met w/pt and Ladan [phone] No case management d/c needs identified d/t pt age, marital status and activity levels prior to admission. Case Management d/c poc: Home independent when medically stable with follow up as directed. Provided alcohol cessation resources. Ladan has achieved sobriety for a number of years. Encouraged Ladan to allow space for pt to walk his own path toward sobriety and encouraged counseling support for them both as pt starts path towards recovery. Pt in agreement and affirmed motivation to continue sobriety. Case management available if there are any further needs. Date Signed: 10/07/2017 02:51 PM Electronically Signed By:Dali Negrete RN [facility] CM Progress Note CM Note CM Note Notes: 10/09/2017 Case Management Note Pt has appointment set with Dr. Maria C Meyer at the [facility] for at 1545. Notified Pharmacist and MD of appointment to coordinate INR and Platelet blood draws. to transport home. Date Signed: 10/09/2017 12:51 PM Electronically Signed By:Dali Negrete RN Intervention Information
== END 2017-10-09 13:44 | disposition home or self-care (01) | DRG 308 ==
LOC: F2W 14:27 → OBSVTOIN 10-07 09:50
PROVIDERS: ADMIT Family Medicine; ATTEND Family Medicine
PROC: 0W9G3ZZ Drainage of Peritoneal Cavity, Percutaneous Approach (ICD-10-PCS; principal; 2017-10-08)
DX: I48.91 Unspecified atrial fibrillation (principal); I81 Portal vein thrombosis; K70.11 Alcoholic hepatitis with ascites; F10.20 Alcohol dependence, uncomplicated; K74.60 Unspecified cirrhosis of liver; I10 Essential (primary) hypertension; Z79.01 Long term (current) use of anticoagulants; Z23 Encounter for immunization; Z96.649 Presence of unspecified artificial hip joint
CPT/HCPCS: 85520-90; 96365; G0008; G0009; G0378; J1644; J1650; Q9967

== ENCOUNTER 2018-01-22 18:29 | Emergency (ER) | payer MEDICAID ==
[2018-01-22 18:52] VITALS: O2SAT 96
--- NOTE | 2018-01-22 19:41 | CPEKG ---
Heart Rate: 76 RR Interval: 789 P-R Interval: 188 QRSD Interval: 90 QT Interval: 420 QTC Interval: 473 P Manilla: 59 QRS Manilla: 36 T Wave Manilla: 32 EKG Severity - NORMAL ECG - EKG Impression: SINUS RHYTHM Electronically Signed By: Tabatha Mendenhall 22-Jan-2018 23:07:11
--- NOTE | 2018-01-22 19:41 | EDPHY ---
H & P Time Seen by Provider: 01/22/18 19:34 HPI/ROS: CHIEF COMPLAINT: elevated BP HISTORY OF PRESENT ILLNESS: The patient is an anticoagulated (Warfarin) 62 y/o male with a history of atrial fibrillation and cirrhosis who presents with elevated blood pressure. He developed tremors tonight and decided to take his blood pressure. His blood pressure was in the 180s systolic. He became quite concerned because he does not have HTN and took his BP multiple times. He became quite anxious and decided to come to the ED. He takes lasix and spironolactone for cirrhosis/ascites. He denies any other associated symptoms. No known aggrev factors. REVIEW OF SYSTEMS: A 10 point review of systems was performed and is negative with the exception of the elements mentioned in the history of present illness. Past Medical/Surgical History: Atrial fibrillation, ascites Social History: at bedside, lives in [place], employed Smoking Status: Former smoker Physical Exam: General Appearance: Alert, pleasant Eyes: Pupils equal and round, no conjunctival pallor or injection ENT, Mouth: Mucous membranes moist Neck: Normal inspection Respiratory: Lungs are clear to auscultation Cardiovascular: Regular rate and rhythm Gastrointestinal: Abdomen is soft and non-tender Neurological: A&O, nonfocal exam Skin: Warm and dry, no rash Extremities: Nontender, no pedal edema Psychiatric: anxious Constitutional: Initial Vital Signs Temperature (C) 37.2 C 01/22/18 18:48 Heart Rate 78 01/22/18 18:48 Respiratory Rate 18 01/22/18 18:48 Blood Pressure 166/84 H 01/22/18 18:48 O2 Sat (%) 96 01/22/18 18:48 O2 Delivery Mode Room Air Allergies/Adverse Reactions: No Known Allergies Allergy (Verified 01/22/18 18:47) Home Medications: Medication Instructions Recorded Allopurinol [Allopurinol 100 MG 100 mg PO DAILY PRN 10/06/17 (*)] Herbals/Supplements -Info Only 1 ea PO DAILY 10/06/17 Furosemide [Lasix 40 MG (*)] 40 mg PO DAILY #30 tab 10/09/17 Metoprolol Tartrate [Lopressor 25 12.5 mg PO BID #60 tab 10/09/17 mg (*)] Spironolactone [Aldactone 25 MG 25 mg PO DAILY #30 tab 10/09/17 (*)] Warfarin Sodium [Coumadin 5MG (*)] 5 mg PO DAILY AT 4PM #30 tab 10/09/17 Medical Decision Making - Diagnostics EKG Interpretation: EKG interpreted by me reveals normal sinus rhythm, rate 76, no ST/T changes. Interpretation: normal EKG ED Course/Re-evaluation: The patient presents with an episode of elevated BP. While I was in the room talking with him, his blood pressure decreased and his anxiety resolved. Last reading was 144/95. Slightly high, but improved. No indication to add BP meds today. I advised him that he should take and record his blood pressure twice a day for a few weeks to determine if his hypertension is sustained. He agrees to this course of action. I answered several questions and follow-up instructions and return precautions given. Differential Diagnosis: includes though not limited to hypertensive emergency, ACS, ICH, ARF Departure - Departure Disposition: Home, Routine, Self-Care Clinical Impression: Elevated blood pressure reading Condition: Good Instructions: Hypertension (ED) Additional Instructions: 1. Take and record your blood pressure 2 times daily for a week or two. 2. Follow-up with your primary care provider for continued high blood pressure. 3. Return to the emergency department for any worsening of condition. Referrals: Deniz Frank, [Doctor of Osteopathy] - As per Instructions Report Scribed for: Tabatha Mendenhall Report Scribed by: Liz West Date of Report: 01/22/18 Time of Report: 19:49 Physician Review and Approval Statement: 01/22/18 19:49 Portions of this note were transcribed by a medical appointment scheduler. I personally performed a history, physical exam, medical decision making, and confirmed accuracy of information the transcribed note.
[2018-01-22 20:05] VITALS: BP 147/84; PULSE 71; RESP 12; TEMP 98.2
== END 2018-01-22 20:04 | disposition home or self-care (01) ==
DX: R03.0 Elevated blood-pressure reading, without diagnosis of hypertension (principal); Z79.01 Long term (current) use of anticoagulants; Z87.891 Personal history of nicotine dependence

== ENCOUNTER 2019-03-25 11:31 | Emergency (ER) | payer MEDICAID, OTHER ==
[2019-03-25 12:39] LABS: INR 4.36 (0.83-1.16); PROTIME(PATIENT) 39.4 SEC (12.0-15.0)
[2019-03-25] MEDS ORDERED: TRANEXAMIC ACID 1,000 MG/10 ML VIAL TP ONE (12:51)
[2019-03-25] MEDS ORDERED: PHYTONADIONE 2.5 MG/2.5 ML ORAL UDL PO ONE (13:25)
--- NOTE | 2019-03-25 13:29 | EDPHY ---
General - History Smoking Status: Former smoker Time Seen by Provider: 03/25/19 11:55 Narrative: CLINICAL IMPRESSION: Supratherapeutic INR, gingival bleeding ASSESSMENT/PLAN: 64-year-old male with past medical history of atrial fibrillation, anticoagulated on Coumadin with a supratherapeutic INR of 4.3 today presents to the emergency department with atraumatic gingival bleeding. Vital signs stable , no evidence of hemodynamic instability. Patient received TXA soaked gauze next to the gingiva and oral vitamin K replacement. He also drank alcohol heavily last night, smells of alcohol today, but refuses to believe that this contributed to his supratherapeutic INR. He did not take his Coumadin last night and I recommend he not take his Coumadin tonight. I did offer admission as he continues to have bleeding from the gum line but patient has refused. I emphasized the importance of avoiding alcohol and following up with a primary care doctor tomorrow without fail. Patient's will help make this appointment. Low threshold for return to ED sooner as discussed discharge. Case reviewed with Dr. Dailey. DIFFERENTIAL DX: Supratherapeutic INR, gingival laceration, alcohol intoxication ED PROCEDURES: See lab and/or imaging results below ED COURSE: 1:00 p.m.: Discussed with Dr. Dailey. Will also give oral vitamin K in addition to TXA soaked pledgets to the gums. 2:30 P.M.: Patient reassessed after 2 separate applications of TXA to the left lower gum line. He also received oral vitamin K. Patient continues to believe that alcohol has "nothing to do with this" and that he is not eating enough leafy green vegetables. I have offered admission given that he continues to bleed and patient adamantly refuses to do this. He wishes to go home and just continue changing packing along the gumline. I have expressed the importance of talking to Dr. Sainz office to inquire about his Coumadin dosing. I have advised that he hold his Coumadin dose again tonight. I have strongly recommended that he not drink any alcohol. CHIEF COMPLAINT: Gingival bleeding HPI: 64-year-old male, anticoagulated on Coumadin for a history of atrial fibrillation, presents to the emergency department with complaints of atraumatic gingival bleeding since last night. Patient reports having similar symptoms a couple weeks ago that self resolved. He reports having an INR of "3 something yesterday". He did not take Coumadin last night. He did however drink alcohol through most of the night. He apparently awoke in the middle the night in a puddle of blood on the pillow. He denies any dental trauma, recent dental work, coughing or vomiting up blood, or lightheadedness. His reports he has been very depressed lately and this is why he is drinking. PAST MEDICAL HISTORY: Atrial fibrillation hypertension See triage summary and nurse notes for addition applicable history Pertinent Past Surgical History: Hernia repair, orthopedic surgeries Family History: Noncontributory Social History: , at bedside REVIEW OF SYSTEMS: A full 10 point review of systems was negative except for those mentioned in HPI. PHYSICAL EXAM: General Appearance: Alert, oriented, appropriate, cooperative, actively bleeding from the mouth, VSS, smells of alcohol, no hypoxia. HEENT: TMs are clear bilaterally no perforation or FB, no injection, no evidence of serous or mucopurulent otitis. Dried blood to the lips, fresh red blood noted along upper and lower gingiva on the right side. This appears to be losing more from the bottom teeth. No obvious laceration. Respiratory: There are no retractions, lungs are clear to auscultation. Cardiac: Regular rate and rhythm, no murmurs or gallops. Skin: Superficial contusions noted to arms and legs MEDICAL DECISION MAKING: Patient was seen independently. Secondary supervising physician at time of evaluation was: Dr. Dailey . Diagnosis: Gingival bleeding, supratherapeutic INR. New, requires workup Summary: See Assessment and Plan for summary of ED visit Clinical lab tests: ordered / reviewed. Discussed patient with another provider: Discussed with Dr. Dailey Patient Progress: Refusing admission, discharged in stable condition. (Joe Person) Medical Decision Making: I did not see this patient while he was in the emergency department. However his care was discussed with the PA while the patient was in the department. I agree with treatment plan and management (Josr Dailey) - Objective Vital Signs: Initial Vital Signs Temperature (C) 36.6 C 03/25/19 11:33 Heart Rate 89 03/25/19 11:33 Respiratory Rate 18 03/25/19 11:33 Blood Pressure 131/79 H 03/25/19 11:33 O2 Sat (%) 92 03/25/19 11:33 O2 Delivery Mode Room Air Allergies/Adverse Reactions: No Known Allergies Allergy (Verified 03/25/19 11:33) Home Medications: Medication Instructions Recorded Allopurinol [Allopurinol 100 MG 100 mg PO DAILY PRN 10/06/17 (*)] Herbals/Supplements -Info Only 1 ea PO DAILY 10/06/17 Furosemide [Lasix 40 MG (*)] 40 mg PO DAILY #30 tab 10/09/17 Metoprolol Tartrate [Lopressor 25 12.5 mg PO BID #60 tab 10/09/17 mg (*)] Spironolactone [Aldactone 25 MG 25 mg PO DAILY #30 tab 10/09/17 (*)] Warfarin Sodium [Coumadin 5MG (*)] 5 mg PO DAILY AT 4PM #30 tab 10/09/17 Medications Given: Discontinued Medications Phytonadione (Vitamin K) 5 mg PO EDNOW ONE Stop: 03/25/19 13:26 Last Admin: 03/25/19 14:09 Dose: 5 mg Tranexamic Acid (Cyklokapron) 500 mg TP EDNOW ONE Stop: 03/25/19 12:52 Last Admin: 03/25/19 13:07 Dose: 500 mg Departure - Departure Disposition: Home, Routine, Self-Care Clinical Impression: Gingival bleeding, Supratherapeutic INR Condition: Fair Instructions: Elevated INR (ED) Additional Instructions: DISCHARGE INSTRUCTIONS FROM YOUR DOCTOR Thank you for visiting our emergency department today. You were treated by a physician virtual assistant for [employer] today and your case was reviewed with our ED Attending physician. Please keep in mind that discharge from the emergency department does not mean that there is nothing wrong - it simply means that we have not identified an emergency condition that requires further evaluation or treatment in the hospital. You should always plan to follow up with primary care for re- evaluation of your condition in the next 2-3 days. If you have been referred to a specialist, please call as soon as possible (today or tomorrow) to schedule your follow up appointment at the appropriate time. YOUR GUMS ARE LIKELY BLEEDING DUE TO A ELEVATED INR OF 4.3. YOU RECEIVED TX A SOAKED ON COTTON BALLS NEXT TO THE GUMLINE AND WELL ORAL VITAMIN K IN THE EMERGENCY DEPARTMENT CLEAR PLEASE HOLD YOUR COUMADIN DOSE TONIGHT. PLEASE CONTACT DOCTOR ANSHU'S OFFICE, LET THEM KNOW YOUR WERE HERE, AND ASK HOW YOU SHOULD ADJUST YOUR COUMADIN. PLEASE DO NOT DRINK ALCOHOL THIS WILL MAKE YOUR BLOOD THINNER. RETURN TO THE EMERGENCY DEPARTMENT FOR PERSISTENT OR WORSENING BLEEDING, LIGHTHEADEDNESS OR FAINTING, SHORTNESS OF BREATH, BLEEDING FROM OTHER SITES, OR ANY OTHER CONCERNS. People present with illnesses and injuries in different ways, and it is always possible that we have missed something. You may always return for re-evaluation if symptoms worsen or if they are not improving or if you develop new/different symptoms. Again, thank you for choosing our emergency department. We hope that you feel better. Referrals: Mary Joe MD [Primary Care Provider] - 1-2 days without fail
[2019-03-25 14:22] VITALS: BP 126/88
--- NOTE | 2019-03-26 13:31 | ASMTCMCOM ---
CM Note CM Note Notes: This CM received call from Mikaela, medicare contact specialist at [id number], [place] patient's ED visit yesterday, 03/25. Per Mikaela, patient's PCP is Dr. Mary Mendoza and they have been trying to contact patient today regarding follow up. See ED report for details of patient's ED visit. Chart reviewed and unable to contact patient at phone number listed. This CM contacted patient's Ladan [phone] who accompamied patient to the ED yesterday and provided her with the phone number for [facility] for scheduling a follow up appointment. Ladan tells me that patient is probably sleeping and assures me that she will call now to schedule a follow up appointment. I have provided Ladan with CM phone number to provide to the clinic if needed for scheduling/follow up ED purposes. This CM contatced Mikaela to inform her of conversation with Ladan and her plans to clall and schedule a follow up visit for patient. CM available prn for further needs Date Signed: 03/26/2019 01:30 PM Electronically Signed By:Arabella Brasher RN
== END 2019-03-25 14:42 | disposition home or self-care (01) ==
DX: K06.8 Other specified disorders of gingiva and edentulous alveolar ridge (principal); E27.8 Other specified disorders of adrenal gland; I48.91 Unspecified atrial fibrillation; Z79.01 Long term (current) use of anticoagulants

== ENCOUNTER → 2019-04-25 | Outpatient (CLI) | payer MEDICAID | LOC: FIMAGING 13:38 ==

== ENCOUNTER → 2019-05-09 | Outpatient (CLI) | payer MEDICAID | LOC: FIMAGING 09:47 ==